=== PATIENT | male | born 1960 | race African-American/Black ===

== ENCOUNTER 2016-08-19 15:29 | Emergency (ER) | payer OTHER ==
[2016-08-19 15:34] VITALS: BP 181/91; BMI 36.1
--- NOTE | 2016-08-19 15:53 | DR.EXTPAIN ---
HPI - Time seen Time seen: 15:50 - PCP Primary Care Physician: EB - Complaint/Symptoms Chief Complaint Doctor Comments: History as stated. Chief Complaint:: PT. C/O LEFT HEEL PAIN THAT STARTED 2 WEEKS AGO. PT. STATES HE HAS GOUT IN THAT SAME FOOT IN THE PAST. DENIES INJURY. - Source History Provided: Patient - Mode of arrival Mode of Arrival: Ambulatory - Timing Onset of Chief Complaint: 08/05/16 PMH - PMH Past Medical History: Yes Past Medical History: Diabetes, Dyslipidemia, Gout, Hypertension, Renal Disease Past Surgical History: Yes Surgical History: Other Past Surgical History Comment: DIALYSIS SHUNT TO RIGHT FOREARM - Family History History of Family Medical Conditions: Yes Family Medical History: Diabetes Mellitus, Hypertension - Social History Does patient currently use any type of tobacco product: Yes Have you used tobacco products in the last 12 months: Yes Type of Tobacco Use: Cigarettes How many years tobacco product used: 40 Does any household member use tobacco: No Alcohol Use: Occasionally Do you use any recreational Drugs:: No Lives With: Alone Lives Where: Home - infectious screening In the last 2 months have you had wt loss of >10#?: NO Have you had fever, night sweats or hemotysis?: No Have you traveled outside the country in the last 6 months?: No Isolation: Standard ROS - Review of Systems Constitutional: No Symptoms Reported Eyes: No Symptoms Reported ENTM: No Symptoms Reported Respiratoy: No Symptoms Reported Cardiovascular: No Symptoms Reported Gastrointestinal/Abdominal: No Symptoms Reported Genitourinary: No Symptoms Reported Neurological: No Symptoms Reported Musculoskeletal: Foot (Pain plantar surface of left foot) Integumentary: No Symptoms Reported Hematologic/Lymphatic: No Symptoms Reported Endocrine: No Symptoms Reported Psychiatric: No Symptoms Reported All Other Systems: Reviewed and Negative PE - Vital Signs Vitals: Temperature 99.4 F Pulse Rate 78 Respiratory Rate 16 Blood Pressure 181/91 O2 Sat by Pulse Oximetry 96 - General Limitations: No Limitations General Appearance: Alert, In No Apparent Distress - Head Head Exam: Normal Inspection, Atraumatic - Eyes Eye exam: Normal Appearance, PERRL, EOMI - ENT ENT Exam: Normal Exam - Neck Neck Exam: Normal Inspection, Full ROM - Chest Chest Inspection: Normal Inspection - Respiratory Respiratory Exam: Normal Lung Sounds Bilat Respiratory Exam: Bilateral Clear to Auscultation - Cardiovascular Cardiovascular Exam: Regular Rate, Normal Rhythm - Abdominal Exam Abdominal Exam: Normal Inspection, Normal Bowel Sounds Abdominal Tenderness: negative: RUQ, RLQ, LUQ, LLQ, Epigastrium, Suprapubic, Diffuse, Mild, Moderate, Severe, Other - Extremities Extremities Exam: Normal Inspection, Other (plantar surface of left tender) - Upper Extremities Shoulder Exam: Normal Inspection Arm Exam: Normal Inspection Elbow Exam: Normal Inspection Forearm Exam: Normal Inspection Hand Exam: Normal Inspection Neuromotor Exam: Normal Exam Neurosensory Exam: Normal Exam Hand Tendon Exam: Flexor Digitorium Profundus (Location) Upper Ext. Vascular Exam: Capillary Refill - Lower Extremities Hip/Pelvis Exam: Normal Inspection Upper Leg Exam: Normal Inspection Knee Exam: Normal Inspection Lower Leg Exam: Normal Inspection. negative: Tenderness Ankle Exam: Normal Inspection Foot/Toe Exam: Tenderness (plantar surface of left foot) Neurovascular/Tendon Exam: Normal Capillary Refill Gait Exam: Not Tested/Not Observed - Back Back Exam: Normal Inspection - Skin Skin Exam: Warm, Dry, Intact Type of Lesion: Rash ROR - XRAY XRAY Interpreted by: Radiologist (There is no cortical lucency or malalignment. There is enthesopathy of the calcaneus which is somewhat indistinct at the plantar fascia attachment. Active plantar fascitis possible. Midfoot degenerative change noted. Vascular calcifications seen. 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 Impression: Plantar fascitis possible. If needed. nonmergent MR can help characterize presence of active inflammation. Ohterwise, degenerative changes and other findings as above.) - Diagnosis Discharge Problem: Plantar fasciitis of left foot - Discharge Plan Condition: Stable - Follow ups/Referrals Follow ups/Referrals: Jesenia Styles [Primary Care Provider] - 3 days - Instructions
[2016-08-19] MEDS ORDERED: TORADOL 60 MG VIAL IM ONE (15:54)
[2016-08-19] MEDS ORDERED: TORADOL 60 MG VIAL ONE (16:21)
--- NOTE | 2016-08-19 16:27 | RAD ---
Left foot three views Indication: Heel pain when walking. No trauma. Findings: There is no cortical lucency or malalignment. There is enthesopathy of the calcaneus which is somewhat indistinct at the plantar fascia attachment. Active plantar fasciitis possible. Midfoot degenerative change noted. Vascular calcifications seen. Great toe MTP joint DJD and plane deformit y noted. Impression: Plantar fasciitis possible. If needed , nonemergent MR can help characterize presence of active inflammation. Otherwise, degenerative changes and other findings as above. Reported By:
== END 2016-08-19 17:09 | disposition home or self-care (01) ==
LOC: ER 15:49
DX: M72.2 Plantar fascial fibromatosis (principal)
CPT/HCPCS: 73630; 96372; 99282; J1885

== ENCOUNTER 2017-01-27 10:47 | Emergency (ER) | payer OTHER, MEDICAID ==
[2017-01-27 11:04] VITALS: BP 184/90; BMI 33.2
[2017-01-27 13:13] LABS: BASOPHILS % (AUTO) 0.4 % (0.2-1.0); EOSINOPHILS # (AUTO) 0.2 x10^3/uL (0.0-0.2); EOSINOPHILS % (AUTO) 2.8 % (0.9-2.9); HEMATOCRIT 27.4 % (42.0-54.0); HEMOGLOBIN 9.3 g/dL (13.5-18.0); LYMPHOCYTES # (AUTO) 1.7 X10^3/uL (1.3-2.9); MEAN CORPUSCULAR HEMOGLOBIN 32.4 pg (27.0-34.0); MEAN CORPUSCULAR HGB CONC 33.9 g/dL (33.0-35.0); MEAN CORPUSCULAR VOLUME 95.7 fL (80.0-100.0); MEAN PLATELET VOLUME 8.7 fL (7.4-11.0); MONOCYTES # (AUTO) 0.5 x10^3/uL (0.3-0.8); MONOCYTES % (AUTO) 7.7 % (0.0-13.0); NEUTROPHILS # (AUTO) 3.6 x10^3/uL (2.2-4.8); NEUTROPHILS % (AUTO) 61.1 % (42.0-75.0); PLATELET COUNT 215 X10^3/uL (150.0-450.0); RED BLOOD COUNT 2.87 X10^6/uL (4.7-6.0); RED CELL DISTRIBUTION WIDTH 13.7 % (11.6-16.5); WHITE BLOOD COUNT 5.9 X10^3/uL (3.6-10.0)
[2017-01-27 13:19] LABS: ALBUMIN 3.3 g/dL (3.4-5.0); CALCIUM 8.3 mg/dL (8.5-10.1); CARBON DIOXIDE 24.7 mmol/L (21-32); COR CA(FOR HYPOALB) 8.9 mg/dL (8.5-10.1); CREATININE 9.06 mg/dL (0.70-1.30); TOTAL PROTEIN 8.8 g/dL (6.4-8.2)
[2017-01-27] MEDS ORDERED: HumuLIN R SUBCUT ONE (14:07)
--- NOTE | 2017-01-27 14:07 | DR.GENAD ---
HPI - PCP Primary Care Physician: none - HPI Comment HPI Comment: DENIES POLYURIA AND POLYDYPSIA. - Complaint/Symptoms Chief Complaint Doctors Comments: ELEVATED BLOOD GLUCOSE. WANT TO KNOW HOW TO USE HIS GLUCOSE MACHINE. Chief Complaint:: "pt is not sure if his blood sugar is high or not" Self Treatment fo Chief Complaint: sugar 515 - Nurses notes reviewed Nurses Notes Review: Yes - Source History Provided: Patient - Mode of Arrival Mode of Arrival: Ambulatory - Timing Onset of Chief Complaint: 01/27/17 - Duration Duration: Constant Duration: Days - Severity Severity: Moderate PMH - PMH Past Medical History: Yes Past Medical History: Diabetes, Dyslipidemia, Gout, Hypertension, Renal Disease Past Surgical History: Yes Surgical History: Other - Family History History of Family Medical Conditions: Yes Family Medical History: Diabetes Mellitus, Hypertension - Social History Does patient currently use any type of tobacco product: Yes Have you used tobacco products in the last 12 months: Yes Type of Tobacco Use: Cigarettes How many years tobacco product used: 40 Does any household member use tobacco: No Do you use any recreational Drugs:: No Lives With: Family Lives Where: Home - infectious screening In the last 2 months have you had wt loss of >10#?: NO Have you had fever, night sweats or hemotysis?: No Have you traveled outside the country in the last 6 months?: No Isolation: Standard ROS - Review of Systems Constitutional: No Symptoms Reported. negative: Chills, Fever, Weakness, Fatigue Eyes: No Symptoms Reported. negative: Eye Pain, Discharge ENTM: No Symptoms Reported. negative: Ear Pain, Nose Discharge, Nose Congestion , Throat Pain Respiratoy: Short of Breath. negative: Productive Cough, Non-Productive Cough, Wheezing, Hemoptysis Cardiovascular: Edema. negative: Chest Pain Gastrointestinal/Abdominal: No Symptoms Reported Genitourinary: No Symptoms Reported Neurological: Weakness. negative: Headache, Dizziness Musculoskeletal: Muscle Pain Integumentary: Change in Color. negative: Bruises, Juandice Hematologic/Lymphatic: Easy Bleeding, Easy Bruising Endocrine: negative: Flushing, Increased Thirst, Increased Urine All Other Systems: Reviewed and Negative PE - Vital Signs Vitals: Temperature 98 F Pulse Rate 84 Respiratory Rate 18 Blood Pressure 184/90 O2 Sat by Pulse Oximetry 100 - General Limitations: No Limitations General Appearance: Alert - Head Head Exam: Normal Inspection - Eyes Eye exam: Normal Appearance - ENT ENT Exam: Normal External Ear Exam External Ear Exam: Normal External Inspection TM/Canal Exam: Bilateral Normal Nose Exam: Normal Nose Exam Mouth Exam: Normal Inspection Throat Exam: Normal Inspection - Neck Neck Exam: Trachea Midline - Chest Chest Inspection: Symmetric Chest Wall Rise - Respiratory Respiratory Exam: Normal Lung Sounds Bilat Respiratory Exam: Bilateral Clear to Auscultation - Cardiovascular Cardiovascular Exam: Regular Rate, Normal Rhythm, Normal Heart Sounds - Abdominal Exam Abdominal Exam: Normal Bowel Sounds, Soft. negative: Tenderness - Extremities Extremities Exam: Normal Inspection - Back Back Exam: Normal Inspection - Neurologic Neurological Exam: Alert, Oriented X3 - Skin Skin Exam: Erythema MDM - Differential Diagnosis Differential Diagnosis: HYPERGLYCEMIA, EDUCATION HOW TO USE ACU CHECK MACHINE FOR GLUCOSE MONITOR. Course - Treatment Treatment: SEE ORDERS. GLUCOSE DECREASING. PATIENT ADMINISTER SLIDING SCALE INSULIN WHILE IN ED. - Education/Counseling Education/Counseling: Patient, Family, Education Educated On: Treatment, Diagnosis, Needs for Follow Up ROR - Labs Reviewed Laboratory Results Reviewed?: Yes Result Diagrams: 01/27/17 13:00 01/27/17 13:00 Laboratory: WBC 5.9 X10^3/uL (3.6-10.0) 01/27/17 13:00 RBC 2.87 X10^6/uL (4.7-6.0) L 01/27/17 13:00 Hgb 9.3 g/dL (13.5-18.0) L 01/27/17 13:00 Hct 27.4 % (42.0-54.0) L 01/27/17 13:00 MCV 95.7 fL (80.0-100.0) 01/27/17 13:00 MCH 32.4 pg (27.0-34.0) 01/27/17 13:00 MCHC 33.9 g/dL (33.0-35.0) 01/27/17 13:00 RDW 13.7 % (11.6-16.5) 01/27/17 13:00 Plt Count 215 X10^3/uL (150.0-450.0) 01/27/17 13:00 MPV 8.7 fL (7.4-11.0) 01/27/17 13:00 Neut % 61.1 % (42.0-75.0) 01/27/17 13:00 Lymph % 28.0 % (21.0-51.0) 01/27/17 13:00 [place] % 7.7 % (0.0-13.0) 01/27/17 13:00 Eos % 2.8 % (0.9-2.9) 01/27/17 13:00 Baso % 0.4 % (0.2-1.0) 01/27/17 13:00 Neut # 3.6 x10^3/uL (2.2-4.8) 01/27/17 13:00 Lymph # 1.7 X10^3/uL (1.3-2.9) 01/27/17 13:00 [place] # 0.5 x10^3/uL (0.3-0.8) 01/27/17 13:00 Eos # 0.2 x10^3/uL (0.0-0.2) 01/27/17 13:00 Baso # 0.0 X10^3/uL (0.0-0.1) 01/27/17 13:00 Absolute Nucleated RBC 0.1 /100WBC 01/27/17 13:00 Sodium 136 mmol/L (136-145) 01/27/17 13:00 Corrected Sodium 144 mmol/L (136-145) 01/27/17 13:00 Potassium 4.1 mmol/L (3.5-5.1) 01/27/17 13:00 Chloride 100 mmol/L (98-107) 01/27/17 13:00 Carbon Dioxide 24.7 mmol/L (21-32) 01/27/17 13:00 BUN 40 mg/dL (7-18) H 01/27/17 13:00 Creatinine 9.06 mg/dL (0.70-1.30) H 01/27/17 13:00 Est GFR (MDRD) Af Amer 8 (>60) L 01/27/17 13:00 Est GFR (MDRD) Non-Af 6 (>60) L 01/27/17 13:00 Glucose 431 mg/dL (65-99) H 01/27/17 13:00 POC Glucose (mg/dL) 352 mg/dL (65-99) H 01/27/17 14:26 Calcium 8.3 mg/dL (8.5-10.1) L 01/27/17 13:00 Corrected Calcium 8.9 mg/dL (8.5-10.1) 01/27/17 13:00 Total Bilirubin 0.20 mg/dL (0.2-1.0) 01/27/17 13:00 AST 15 Units/L (15-37) 01/27/17 13:00 ALT 15 Units/L (12-78) 01/27/17 13:00 Alkaline Phosphatase 121 Units/L (46-116) H 01/27/17 13:00 Total Protein 8.8 g/dL (6.4-8.2) H 01/27/17 13:00 Albumin 3.3 g/dL (3.4-5.0) L 01/27/17 13:00 Globulin 5.5 g/dL (2.5-4.5) H 01/27/17 13:00 Albumin/Globulin Ratio 0.6 Ratio (1.1-2.1) L 01/27/17 13:00 Acetone, Semi-Quant Negative (NEGATIVE) 01/27/17 13:00 - Diagnosis Discharge Problem: Hyperglycemia - Discharge Plan Disposition: 01 HOME, SELF-CARE Condition: Stable - Follow ups/Referrals Follow ups/Referrals: NFD,None [Primary Care Provider] - 2 days - Instructions Instructions: Hyperglycemia, [id number] Additional Instructions: RETURN TO ED IF WORSE.
[2017-01-27] MEDS ORDERED: HumuLIN R ONE (14:19)
[2017-01-27] MEDS ORDERED: SNACK - Diabetic Appropriate PO SCH (20:00)
== END 2017-01-27 14:36 | disposition home or self-care (01) ==
LOC: ER 11:09
DX: R73.9 Hyperglycemia, unspecified (principal)
CPT/HCPCS: 36415; 80053; 82009; 85025; 99282; J1815

== ENCOUNTER → 2017-04-07 | Outpatient (CLI) | payer OTHER, MEDICAID ==
--- NOTE | 2017-04-08 14:22 | MRI ---
MRI SPINE CERVICAL WITHOUT CONTRAST CLINICAL HISTORY: 57-year-old male with chronic neck pain and numbness with tingling in the bilateral upper extremities. COMPARISON: None. Technique: Multiplanar, multisequence MRI images of the cervical spine were obtained without the adm inistration of intravenous contrast. FINDINGS: Straightening with mild reversal at C4-C5 of the normal cervical lordosis as imaged. Alignm ent is maintained. The craniocervical junction is normal. Vertebral body heights are preserved with t ype 2 endplate changes anteriorly C5-C6. There is loss of disc space C4-C5. Remaining intervertebral disc heights and signal are preserved. Marrow signal is otherwise unremarkable. Cord signal is lory l. The visualized posterior fossa structures are normal. C2-C3: Segmental ossification of the posterior longitudinal ligament with central disc osteophyte maria del rosario rows canal to 10.4 mm without cord impingement or contour deformity. No cord signal change. No neural foraminal stenosis. C3-C4: Segmental ossification posterior longitudinal ligament superimposed upon the central disc oste ophyte narrows canal 9.6 mm. There is subtle flattening of the ventral cord centrally without cord si gnal change. No significant neural foraminal stenosis. C4-C5: Segmental ossification of the posterior longitudinal ligament with central disc osteophyte maria del rosario rows canal to 8.0 mm with depression of the ventral cord without cord signal change. Uncovertebral kemar int hypertrophy with spurring with facet joint hypertrophy produces moderate left and mild right neur al foraminal stenosis. C5-C6: Large central and left central disc osteophyte complex produces is effacement of the ventral s ubarachnoid spaces with significant contour deformity of the ventral cord without cord signal change. Significant uncovertebral joint hypertrophy with spurring combines with mild facet hypertrophy produ ce moderate bilateral neural foraminal stenosis. C6-C7: Segmental ossification of the posterior longitudinal ligament with central disc osteophyte com plex narrows central canal to 6.8 mm with flattening of the ventral cord without cord signal change. Uncovertebral joint hypertrophy with spurring produces mild right neural foraminal stenosis. C7-T1: No central canal or neural foraminal stenosis. Paraspinous soft tissues are unremarkable. IMPRESSION: 1. Multilevel disc degeneration and spondyloarthropathy with flattening of the ventral cord without c ord signal change as described, most severe at C4-C5 and C6-C7. 2. See level by level descriptions above. Reported By:
== END ==
LOC: RAD 09:32
PROVIDERS: ATTEND Obstetrics & Gynecology Obstetrics
DX: M54.12 Radiculopathy, cervical region (principal)
CPT/HCPCS: 72141

== ENCOUNTER → 2017-04-24 | Outpatient (CLI) | payer OTHER, MEDICAID ==
[2017-04-28 21:38] LABS: HEPATITIS A ANTIBODY IGM Negative (Negative)
[2017-04-29 07:26] LABS: HEPATITIS B CORE IGM Negative (Negative); HEPATITIS B SURFACE ANTIGEN Negative (Negative)
== END ==
LOC: LAB 15:40
PROVIDERS: ATTEND Obstetrics & Gynecology Obstetrics
DX: K75.9 Inflammatory liver disease, unspecified (principal)
CPT/HCPCS: 36415; 80074; 87340

== ENCOUNTER → 2017-05-01 | Outpatient (CLI) | payer OTHER, MEDICAID | LOC: LAB 09:29 | PROVIDERS: ATTEND Obstetrics & Gynecology Obstetrics | DX: F52.21 Male erectile disorder (principal) | CPT/HCPCS: 36415; 82670; 84153; 84403 ==

== ENCOUNTER 2017-07-29 11:54 | Emergency (ER) | payer OTHER, MEDICAID ==
[2017-07-29 11:57] VITALS: BMI 35.9
[2017-07-29] MEDS ORDERED: ASPIRIN 81 MG CHEWTAB ONE (11:59)
[2017-07-29] MEDS ORDERED: ASPIRIN 81 MG CHEWTAB PO ONE (12:00)
[2017-07-29] MEDS: NITROSTAT SL PRN ×3 (12:05→12:42)
[2017-07-29] MEDS ORDERED: NITROSTAT SL ONE ×2 (12:05→12:13)
[2017-07-29] MEDS ORDERED: NS 1000 ML 1,000 ML ONE (12:14)
[2017-07-29] MEDS ORDERED: NS 1000 ML 1,000 ML IV ONE (12:17)
[2017-07-29 12:29] LABS: BASOPHILS % (AUTO) 0.6 % (0.2-1.0); EOSINOPHILS # (AUTO) 0.2 x10^3/uL (0.0-0.2); EOSINOPHILS % (AUTO) 3.5 % (0.9-2.9); HEMATOCRIT 30.1 % (42.0-54.0); HEMOGLOBIN 9.8 g/dL (13.5-18.0); LYMPHOCYTES # (AUTO) 1.5 X10^3/uL (1.3-2.9); LYMPHOCYTES % (AUTO) 27.9 % (21.0-51.0); MEAN CORPUSCULAR HEMOGLOBIN 29.5 pg (27.0-34.0); MEAN CORPUSCULAR HGB CONC 32.5 g/dL (33.0-35.0); MEAN CORPUSCULAR VOLUME 90.7 fL (80.0-100.0); MEAN PLATELET VOLUME 7.8 fL (7.4-11.0); MONOCYTES # (AUTO) 0.5 x10^3/uL (0.3-0.8); MONOCYTES % (AUTO) 10.2 % (0.0-13.0); NEUTROPHILS % (AUTO) 57.8 % (42.0-75.0); PLATELET COUNT 252 X10^3/uL (150.0-450.0); RED BLOOD COUNT 3.32 X10^6/uL (4.7-6.0); RED CELL DISTRIBUTION WIDTH 16.6 % (11.6-16.5); WHITE BLOOD COUNT 5.3 X10^3/uL (3.6-10.0)
[2017-07-29 12:41] LABS: BLOOD UREA NITROGEN 57 mg/dL (7-18); CALCIUM 8.6 mg/dL (8.5-10.1); CARBON DIOXIDE 25.3 mmol/L (21-32); CHLORIDE 103 mmol/L (98-107); CREATININE 10.25 mg/dL (0.70-1.30); SODIUM 141 mmol/L (136-145); TROPONIN I 0.03 ng/mL (0-1.5); eGFR BLACK RACES 7 (>60); eGFR NON BLACK RACES 6 (>60)
[2017-07-29 12:46] LABS: ALANINE AMINOTRANSFERASE 14 Units/L (12-78); ALBUMIN 3.8 g/dL (3.4-5.0); ALKALINE PHOSPHATASE 85 Units/L (46-116); ASPARTATE AMINO TRANSFERASE 17 Units/L (15-37); CKMB % 1.1 % (<4); CREATINE KINASE 151 Units/L (39-308); CREATINE KINASE MB 1.7 ng/mL (0-4.0); TOTAL PROTEIN 9.5 g/dL (6.4-8.2)
--- NOTE | 2017-07-29 12:47 | RAD ---
Exam: Portable chest History: 57-year-old male with chest pain and shortness of breath Comparison: None Findings: Mild cardiomegaly is present. In addition suggestion of mild vascular congestion is noted a s well. Otherwise lungs are clear. No significant effusion on either side. IMPRESSION: Cardiomegaly with mild vascular congestion suspected Reported By:
--- NOTE | 2017-07-29 13:33 | DR.CP ---
HPI - Time Seen Time seen: 12:15 - PCP Primary Care Physician: CUETO - Complaint Chief Complaint Doctor Comments: Patient presented to the ED with chest pain onset 4-6 hours prior to being seen. States that the pain is lower chest radiating to the left neck and left arm. Denies diaphoresis. Family history of heart disease. Patient is on dialysis with history o DM. Chief Complaint:: PT. C/O CHEST PAIN THAT RADIATES TO NECK AND DOWN LEFT ARM. PAIN BEGINS IN THE EPIGASTRIC AREA AND EXTENDS UP TOWARDS CHEST. PT. HAS ALSO EXPERIENCED SOME SHORTNESS OF BREATH. DENIES CARDIAC HISTORY. - Source History Provided: Patient - Mode of Arrival Mode of Arrival: Ambulatory - Timing Onset of Chief Complaint: 07/29/17 - Location Chest Pain Radiation Location: Left Arm, Left Shoulder, Neck - Associated Signs and Symptoms Associated Signs and Symptoms: Shortness of Breath PMH - PMH Past Medical History: Yes Past Medical History: Diabetes, Dyslipidemia, Gout, Hypertension, Renal Disease Past Surgical History: Yes Surgical History: Other Past Surgical History Comment: DIALYSIS SHUNT TO RIGHT ARM - Family History History of Family Medical Conditions: Yes Family Medical History: Diabetes Mellitus, [place], Coronary Artery Disease, Hypertension - Social History Does patient currently use any type of tobacco product: Yes Have you used tobacco products in the last 12 months: Yes Type of Tobacco Use: Cigarettes Does any household member use tobacco: No Alcohol Use: None Do you use any recreational Drugs:: No Lives With: Spouse Lives Where: Home - infectious screening In the last 2 months have you had wt loss of >10#?: NO Have you had fever, night sweats or hemotysis?: No Have you traveled outside the country in the last 6 months?: No Isolation: Standard ROS - Review of Systems Constitutional: negative: Diaphoresis Eyes: No Symptoms Reported ENTM: No Symptoms Reported Respiratoy: No Symptoms Reported Cardiovascular: Chest Pain (lower chest radiating to left neck down left arm) Genitourinary: No Symptoms Reported Neurological: No Symptoms Reported Musculoskeletal: No Symptoms Reported Integumentary: No Symptoms Reported Hematologic/Lymphatic: No Symptoms Reported Endocrine: No Symptoms Reported Psychiatric: No Symptoms Reported All Other Systems: Reviewed and Negative PE - Vitals Vitals: Temperature 98.2 F Pulse Rate [Apical] 79 Pulse Rate 83 Respiratory Rate 14 Blood Pressure [Left Arm] 156/80 Blood Pressure 189/84 O2 Sat by Pulse Oximetry 100 - General Limitations: No Limitations General Appearance: Alert, In No Apparent Distress - Head Head Exam: Normal Inspection, Atraumatic - Eyes Eye exam: Normal Appearance, PERRL, EOMI - ENT ENT Exam: Normal Exam - Chest Chest Inspection: Normal Inspection, Symmetric Chest Wall Rise - Respiratory Respiratory Exam: Normal Lung Sounds Bilat Respiratory Exam: Bilateral Clear to Auscultation - Cardiovascular Cardiovascular Exam: Regular Rate, Normal Rhythm Pulse: Normal, Radial, Femoral Edema: Normal - Abdominal Exam Abdominal Exam: Normal Inspection Abdominal Tenderness: negative: RUQ, RLQ, LUQ, LLQ, Epigastrium, Suprapubic, Diffuse, Mild, Moderate, Severe, Other - Extremities Extremities Exam: Normal Inspection, Full ROM - Back Back Exam: Normal Inspection, Full ROM - Neurologic Neurological Exam: Alert, Oriented X3, CN II-XII Intact - Psychiatric Psychiatric Exam: Normal Affect, Normal Mood - Skin Skin Exam: Warm, Dry, Intact Course - Treatment Treatment: ASA, NT - Reevaluation 1st: Improved - Consultation Called: 13:15 (Dr Cueto agreed to admit for chest pain protocol) ROR - Labs Reviewed Result Diagrams: 07/29/17 12:15 07/29/17 12:15 Laboratory: WBC 5.3 X10^3/uL (3.6-10.0) 07/29/17 12:15 RBC 3.32 X10^6/uL (4.7-6.0) L 07/29/17 12:15 Hgb 9.8 g/dL (13.5-18.0) L 07/29/17 12:15 Hct 30.1 % (42.0-54.0) L 07/29/17 12:15 MCV 90.7 fL (80.0-100.0) 07/29/17 12:15 MCH 29.5 pg (27.0-34.0) 07/29/17 12:15 MCHC 32.5 g/dL (33.0-35.0) L 07/29/17 12:15 RDW 16.6 % (11.6-16.5) H 07/29/17 12:15 Plt Count 252 X10^3/uL (150.0-450.0) 07/29/17 12:15 MPV 7.8 fL (7.4-11.0) 07/29/17 12:15 Neut % (Auto) 57.8 % (42.0-75.0) 07/29/17 12:15 Lymph % (Auto) 27.9 % (21.0-51.0) 07/29/17 12:15 [place] % (Auto) 10.2 % (0.0-13.0) 07/29/17 12:15 Eos % (Auto) 3.5 % (0.9-2.9) H 07/29/17 12:15 Baso % (Auto) 0.6 % (0.2-1.0) 07/29/17 12:15 Neut # (Auto) 3.0 x10^3/uL (2.2-4.8) 07/29/17 12:15 Lymph # (Auto) 1.5 X10^3/uL (1.3-2.9) 07/29/17 12:15 [place] # (Auto) 0.5 x10^3/uL (0.3-0.8) 07/29/17 12:15 Eos # (Auto) 0.2 x10^3/uL (0.0-0.2) 07/29/17 12:15 Baso # (Auto) 0.0 X10^3/uL (0.0-0.1) 07/29/17 12:15 Absolute Nucleated RBC 0.0 /100WBC 07/29/17 12:15 INR Target Range - 07/29/17 12:15 INR 1.10 (0.8-1.3) 07/29/17 12:15 APTT 39.8 SECONDS (22.9-36.5) H 07/29/17 12:15 PTT Comment - 07/29/17 12:15 Sodium 141 mmol/L (136-145) 07/29/17 12:15 Corrected Sodium TNP 07/29/17 12:15 Potassium 4.6 mmol/L (3.5-5.1) 07/29/17 12:15 Chloride 103 mmol/L (98-107) 07/29/17 12:15 Carbon Dioxide 25.3 mmol/L (21-32) 07/29/17 12:15 BUN 57 mg/dL (7-18) H 07/29/17 12:15 Creatinine 10.25 mg/dL (0.70-1.30) H 07/29/17 12:15 Est GFR (MDRD) Af Amer 7 (>60) L 07/29/17 12:15 Est GFR (MDRD) Non-Af 6 (>60) L 07/29/17 12:15 Glucose 78 mg/dL (65-99) 07/29/17 12:15 Calcium 8.6 mg/dL (8.5-10.1) 07/29/17 12:15 Corrected Calcium TNP 07/29/17 12:15 Total Bilirubin 0.40 mg/dL (0.2-1.0) 07/29/17 12:15 AST 17 Units/L (15-37) 07/29/17 12:15 ALT 14 Units/L (12-78) 07/29/17 12:15 Alkaline Phosphatase 85 Units/L (46-116) 07/29/17 12:15 Creatine Kinase 151 Units/L (39-308) 07/29/17 12:15 CK-MB (CK-2) 1.7 ng/mL (0-4.0) 07/29/17 12:15 CK/CKMB % Calc 1.1 % (<4) 07/29/17 12:15 Troponin I 0.03 ng/mL (0-1.5) 07/29/17 12:15 Total Protein 9.5 g/dL (6.4-8.2) H 07/29/17 12:15 Albumin 3.8 g/dL (3.4-5.0) 07/29/17 12:15 Globulin 5.7 g/dL (2.5-4.5) H 07/29/17 12:15 Albumin/Globulin Ratio 0.7 Ratio (1.1-2.1) L 07/29/17 12:15 - XRAY XRAY Interpreted by: Radiologist (Chest:Mild cardiomegaly is present. In addition suggestion of mild vascular congestion is noted as well. Impression: Cardiomegaly with mild vascular congestion suspected.) - Diagnosis Discharge Problem: Chest pain Qualifiers: Chest pain type: unspecified Qualified Code(s): R07.9 - Chest pain, unspecified Renal failure Qualifiers: Renal failure chronicity: chronic Chronic kidney disease stage: unspecified stage Qualified Code(s): N18.9 - Chronic kidney disease, unspecified - Discharge Plan Condition: Stable - Follow ups/Referrals Follow ups/Referrals: SHELLI CUETO [Primary Care Provider] - 3 days - Instructions
[2017-07-29] MEDS ORDERED: ZOFRAN INJ 4 MG VIAL IVP PRN (13:43)
[2017-07-29 16:27] LABS: BILIRUBIN,URINE NEGATIVE (NEGATIVE); BLOOD/HEMOGLOBIN,URINE 2+ (NEGATIVE); GLUCOSE, URINE 1+ (NEGATIVE); KETONES,URINE NEGATIVE (NEGATIVE); LEUKOCYTE ESTERASE ,URINE 1+ (NEGATIVE); NITRITES,URINE NEGATIVE (NEGATIVE); PROTEIN,URINE 4+ (NEGATIVE); UROBILINOGEN,URINE NORMAL (NORMAL)
[2017-07-29 16:36] LABS: APPEARANCE,URINE SLIGHTLY HAZY (CLEAR); BACTERIA,URINE 1+ /HPF (NEGATIVE); COLOR,URINE YELLOW (YELLOW); SQUAMOUS EPITHELIAL CELL,UR FEW /HPF (NEGATIVE)
[2017-07-29 18:33] LABS: CKMB % 1.1 % (<4); CREATINE KINASE MB 1.5 ng/mL (0-4.0); TROPONIN I 0.03 ng/mL (0-1.5)
[2017-07-30 01:02] LABS: CKMB % 1.1 % (<4); CREATINE KINASE MB 1.2 ng/mL (0-4.0); TROPONIN I 0.03 ng/mL (0-1.5)
[2017-07-30 06:12] LABS: BASOPHILS % (AUTO) 0.5 % (0.2-1.0); EOSINOPHILS # (AUTO) 0.2 x10^3/uL (0.0-0.2); EOSINOPHILS % (AUTO) 3.5 % (0.9-2.9); HEMOGLOBIN 8.6 g/dL (13.5-18.0); LYMPHOCYTES # (AUTO) 1.5 X10^3/uL (1.3-2.9); LYMPHOCYTES % (AUTO) 30.2 % (21.0-51.0); MEAN CORPUSCULAR HEMOGLOBIN 29.9 pg (27.0-34.0); MEAN CORPUSCULAR HGB CONC 33.2 g/dL (33.0-35.0); MEAN CORPUSCULAR VOLUME 89.9 fL (80.0-100.0); MEAN PLATELET VOLUME 7.9 fL (7.4-11.0); MONOCYTES # (AUTO) 0.5 x10^3/uL (0.3-0.8); MONOCYTES % (AUTO) 9.4 % (0.0-13.0); NEUTROPHILS # (AUTO) 2.8 x10^3/uL (2.2-4.8); NEUTROPHILS % (AUTO) 56.4 % (42.0-75.0); PLATELET COUNT 214 X10^3/uL (150.0-450.0); RED BLOOD COUNT 2.89 X10^6/uL (4.7-6.0); RED CELL DISTRIBUTION WIDTH 16.1 % (11.6-16.5)
[2017-07-30 06:30] LABS: ALANINE AMINOTRANSFERASE 12 Units/L (12-78); ALBUMIN 3.1 g/dL (3.4-5.0); ALKALINE PHOSPHATASE 82 Units/L (46-116); ASPARTATE AMINO TRANSFERASE 13 Units/L (15-37); BLOOD UREA NITROGEN 64 mg/dL (7-18); CALCIUM 7.9 mg/dL (8.5-10.1); CARBON DIOXIDE 23.2 mmol/L (21-32); CHLORIDE 105 mmol/L (98-107); CHOL/HDL RATIO 2.6 (0.0-5.0); CHOLESTEROL 102 mg/dL (0-200); COR CA(FOR HYPOALB) 8.6 mg/dL (8.5-10.1); CREATININE 10.75 mg/dL (0.70-1.30); HDL CHOLESTEROL 39 mg/dL (40-60); SODIUM 140 mmol/L (136-145); TRIGLYCERIDES 64 mg/dL (0-150); eGFR BLACK RACES 6 (>60); eGFR NON BLACK RACES 5 (>60)
[2017-07-30 12:52] VITALS: BP 170/85
== END 2017-07-30 13:35 | disposition home or self-care (01) ==
LOC: ER 12:01 → MED/SURG 14:04
PROVIDERS: ADMIT Obstetrics & Gynecology Obstetrics; ATTEND Obstetrics & Gynecology Obstetrics
DX: R07.89 Other chest pain (principal); M54.2 Cervicalgia; M79.602 Pain in left arm; R06.02 Shortness of breath; N18.9 Chronic kidney disease, unspecified; R79.1 Abnormal coagulation profile; E78.2 Mixed hyperlipidemia; R10.13 Epigastric pain; R94.4 Abnormal results of kidney function studies; I12.9 Hypertensive chronic kidney disease with stage 1 through stage 4 chronic kidney disease, or unspecified chronic kidney disease; I51.7 Cardiomegaly; Z79.899 Other long term (current) drug therapy
CPT/HCPCS: 36415; 71045; 80053; 80061; 81001; 82550; 82553; 82607; 82728; 82746; 83540; 84466; 84484; 85025; 85610; 85730; 87086; 93005; 93010; 94760; 96365; 99284; A4216; A4222; G0378

== ENCOUNTER 2017-09-14 10:52 | Emergency (ER) | payer MEDICAID, OTHER ==
[2017-09-14 10:58] VITALS: BP 143/67; BMI 34.5
--- NOTE | 2017-09-14 11:36 | DR.EXTPAIN ---
HPI - Time seen Time seen: 11:30 - PCP Primary Care Physician: ROM BRUMFIELD - HPI Comment HPI Comment: NO TRAUMA. PAIN ON AND OFF IN THE PAST. THIS EPISODE STARTED THURSDAY. NO FEVER. - Complaint/Symptoms Chief Complaint Doctor Comments: INCREASING LT SHOULDER AND HIP PAIN TIMES 3 DAYS. Chief Complaint:: PT C/O LEFT HIP AND LEFT SHOULDER PAIN PT DENIES ANY INJURY AND HE C/O NOT BEING ABLE TO LIFT HIS LEFT SHOULDER,,, BR - Nurses notes reviewed Nurses Notes Review: Yes - Source History Provided: Patient - Mode of arrival Mode of Arrival: Ambulatory - Timing Onset of Chief Complaint: 09/09/17 - Context History of: Arthritis - Associated signs and symptoms Associated Signs and Symptoms: Pain PMH - PMH Past Medical History: Yes Past Medical History: Diabetes, Dyslipidemia, Gout, Hypertension, Renal Disease Past Medical History Comment: RENAL FAILURE, DIALYSIS Past Surgical History: Yes Surgical History: Ortho Surgery - Family History History of Family Medical Conditions: Yes Family Medical History: Cancer, Hypertension - Social History Does patient currently use any type of tobacco product: No Have you used tobacco products in the last 12 months: No Type of Tobacco Use: None Does any household member use tobacco: No Alcohol Use: None Do you use any recreational Drugs:: No Lives With: Family Lives Where: Home - infectious screening In the last 2 months have you had wt loss of >10#?: NO Have you had fever, night sweats or hemotysis?: No Have you traveled outside the country in the last 6 months?: No Isolation: Standard ROS - Review of Systems Constitutional: No Symptoms Reported Eyes: No Symptoms Reported ENTM: No Symptoms Reported Respiratoy: No Symptoms Reported Cardiovascular: No Symptoms Reported Gastrointestinal/Abdominal: No Symptoms Reported Genitourinary: No Symptoms Reported Neurological: No Symptoms Reported Musculoskeletal: Joint Pain, Left, Shoulder, Hip Integumentary: No Symptoms Reported Hematologic/Lymphatic: No Symptoms Reported Endocrine: No Symptoms Reported All Other Systems: Reviewed and Negative PE - Vital Signs Vitals: Temperature 96.6 F Pulse Rate 77 Respiratory Rate 20 Blood Pressure [Left Arm] 170/85 Blood Pressure 143/67 O2 Sat by Pulse Oximetry 100 - General Limitations: No Limitations General Appearance: Alert - Head Head Exam: Normal Inspection - Eyes Eye exam: Normal Appearance - ENT ENT Exam: Normal External Ear Exam - Neck Neck Exam: Normal Inspection - Chest Chest Inspection: Symmetric Chest Wall Rise - Respiratory Respiratory Exam: Normal Lung Sounds Bilat Respiratory Exam: Bilateral Clear to Auscultation - Cardiovascular Cardiovascular Exam: Regular Rate, Normal Rhythm, Normal Heart Sounds - Abdominal Exam Abdominal Exam: Normal Inspection - Extremities Extremities Exam: Tenderness (LT SHOULDER TENDER. DECREASE ROM. LT HIP TENDER. KADEN.) - Lower Extremities Neurovascular/Tendon Exam: Normal Capillary Refill Gait Exam: Observed & Limited by Pain - Back Back Exam: Normal Inspection - Neurological Neurological Exam: Alert, Oriented X3 - Psychiatric Psychiatric Exam: Normal Affect, Normal Mood - Skin Skin Exam: Erythema MDM - Differential Diagnosis Differential Diagnosis: Fracture, Sprain, Other (TENDINITIS, BURSITIS) Course - Treatment Treatment: SEE ORDERS. - Education/Counseling Education/Counseling: Patient, Family, Education Educated On: Diagnosis, Needs for Follow Up ROR - XRAY XRAY Interpreted by: Radiologist XRAY Findings: REPORT DISCUSS WITH PATIENT AND FAMILY. - Diagnosis Discharge Problem: Arthritis Shoulder pain Qualifiers: Chronicity: acute Laterality: left Qualified Code(s): M25.512 - Pain in left shoulder Hip pain Qualifiers: Laterality: left Qualified Code(s): M25.552 - Pain in left hip - Discharge Plan Condition: Stable Prescriptions: Cyclobenzaprine HCl [FLEXERIL 10 MG *] 10 mg PO TID #15 tab Ketorolac Tromethamine [Toradol Tab] 10 mg PO Q8H PRN #15 tab PRN Reason: Pain - Follow ups/Referrals Follow ups/Referrals: SHELLI CUETO [Primary Care Provider] - 3 days - Instructions Instructions: Shoulder Pain, Hip Pain, Osteoarthritis Additional Instructions: RETURN TO ED IF WORSE.
[2017-09-14] MEDS ORDERED: NORFLEX INJ IVP ONE (11:37)
[2017-09-14] MEDS ORDERED: TORADOL 60 MG VIAL IM ONE (11:37)
[2017-09-14] MEDS ORDERED: TORADOL 60 MG VIAL ONE (11:39)
[2017-09-14] MEDS ORDERED: NORFLEX INJ ONE (11:55)
--- NOTE | 2017-09-14 11:58 | RAD ---
Exam: Left shoulder three views History: 57-year-old male with left shoulder pain Comparison: None Findings: No fracture or dislocation is seen on this exam. However there is narrowing of the subacrom ial space to suggest the possibility of underlying rotator cuff degeneration. Spurring is seen along the medial aspect of the coracoid process. Mild degenerative changes are present at the left acromioc lavicular and inferior glenohumeral joints. Impression: 1. No acute bony abnormality is identified in the left shoulder. 2. Narrowing of the subacromial space suggests the possibility of underlying rotator cuff degeneratio n. Further evaluation with MRI of the left shoulder be useful Reported By:
--- NOTE | 2017-09-14 12:01 | RAD ---
History: Pain left shoulder for months. Study: Left shoulder three views. Comparison: June 15, 2016. Findings: There is no evidence of acute fracture dislocation. The acromioclavicular joint and glenohu meral joint are intact. There is arthritic change at the acromioclavicular and glenohumeral joints. T hese findings are not significantly changed since the prior study. IMPRESSION: Arthritic change at the left acromioclavicular and glenohumeral joints. No evidence of acute osseous injury to the left shoulder. Reported By:
== END 2017-09-14 13:09 | disposition home or self-care (01) ==
LOC: ER 11:14
DX: M19.90 Unspecified osteoarthritis, unspecified site (principal); M25.512 Pain in left shoulder; M25.552 Pain in left hip
CPT/HCPCS: 73030; 73501; 96372; 99282; J1885; J2360

== ENCOUNTER 2017-12-25 17:57 | Inpatient (IN) ==
[2017-12-25 19:22] LABS: BASOPHILS % (AUTO) 0.3 % (0.2-1.0); EOSINOPHILS % (AUTO) 0.7 % (0.9-2.9); LYMPHOCYTES # (AUTO) 0.9 X10^3/uL (1.3-2.9); LYMPHOCYTES % (AUTO) 14.5 % (21.0-51.0); MEAN CORPUSCULAR HEMOGLOBIN 28.9 pg (27.0-34.0); MEAN CORPUSCULAR HGB CONC 32.5 g/dL (33.0-35.0); MEAN CORPUSCULAR VOLUME 88.9 fL (80.0-100.0); MEAN PLATELET VOLUME 8.3 fL (7.4-11.0); MONOCYTES # (AUTO) 0.5 x10^3/uL (0.3-0.8); MONOCYTES % (AUTO) 8.1 % (0.0-13.0); NEUTROPHILS % (AUTO) 76.4 % (42.0-75.0); PLATELET COUNT 231 X10^3/uL (150.0-450.0); RED BLOOD COUNT 1.74 X10^6/uL (4.7-6.0); RED CELL DISTRIBUTION WIDTH 19.3 % (11.6-16.5); WHITE BLOOD COUNT 6.5 X10^3/uL (3.6-10.0)
[2017-12-25 19:27] LABS: HEMATOCRIT 15.4 % (42.0-54.0)
[2017-12-25 19:35] LABS: ALANINE AMINOTRANSFERASE 59 Units/L (12-78); ALBUMIN 2.8 g/dL (3.4-5.0); ALKALINE PHOSPHATASE 155 Units/L (46-116); ASPARTATE AMINO TRANSFERASE 70 Units/L (15-37); BLOOD UREA NITROGEN 56 mg/dL (7-18); CARBON DIOXIDE 22.4 mmol/L (21-32); CHLORIDE 102 mmol/L (98-107); CREATININE 12.06 mg/dL (0.70-1.30); SODIUM 136 mmol/L (136-145); eGFR NON BLACK RACES 5 (>60)
[2017-12-25] MEDS ORDERED: ROCEPHIN VIAL 500 MG IM ONE (19:42)
[2017-12-25] MEDS ORDERED: TYLENOL 325 MG TAB PO PRN (20:45)
[2017-12-25] MEDS ORDERED: BENADRYL INJ 50 MG VIAL IVP PRN (20:45)
[2017-12-25] MEDS ORDERED: NS 500 ML IV 500 ML IV ONE (20:45)
--- NOTE | 2017-12-25 21:02 | RAD ---
Chest, one view Indication: Extremity tremors, falls Comparison: 12/07/2017 Findings: Borderline cardiac silhouette enlargement is unchanged, accounting for differences in techn ique. The lungs are mildly hypoinflated, but grossly clear, without dense infiltrates, overt edema, o r significant pleural effusion. Impression: No acute chest process or significant change from prior. Reported By:
[2017-12-26 10:15] LABS: HEMATOCRIT 21.7 % (42.0-54.0); HEMOGLOBIN 7.3 g/dL (13.5-18.0)
--- NOTE | 2017-12-26 10:41 | DR.H&P ---
H&P - History & Physical for Day of: H&P Date: 12/25/17 - Chief Complaint Chief Complaint: WEAKNESS, UNCONTROLLED JERKING PER FAMILY - History of Present Illness History of Present Illness: [address] CUETO PCP, END STAGE RENAL DISEASE ON DIALYSIS IN [place] PRESENTED TO ED WITH SPOUSE CO INCREASED WEAKNESS AND EPISODES OF MUSCLE "JERKING". PT SKIPPED DIALYSIS TODAY DUE TO WEAKNESS. PT ALERT AND ORIENTED, HGN ON ER EVALUATION 5, PT BUN/CREAT 56/12.06. PT ADMITTED FOR TRANSFUSION PRBC. PT FAMILY REPORTS HE HAS HTN, CRF AND DM. DENIES ANY CARDIAC HISTORY, DENIES CHEST PAIN. - Past Medical History Past Medical History: Diabetes, Dyslipidemia, Gout, Hypertension, Renal Disease - Past Surgical History Surgical History: Other - Family History Family Medical History: Diabetes Mellitus, Cancer, Hypertension - Social History Does patient currently use any type of tobacco product: Yes Have you used tobacco products in the last 12 months: Yes Type of Tobacco Use: Cigarettes How many years tobacco product used: 40 Does any household member use tobacco: No Alcohol Use: None Drug Use: None - Medications Home Medications: pregabalin [From Lyrica] Allergy (Verified 09/14/17 10:54) - Review of Systems Constitutional: Weakness Eyes: No Symptoms Reported ENT: No Symptoms Reported Respiratory: SOB with Excertion Cardiovascular: Edema Gastrointestinal: No Symptoms Reported Genitourinary: No Symptoms Reported Musculoskeletal: No Symptoms Reported Skin: No Symptoms Reported Neurological: Weakness (GENERALIZED) - Physical Exam Vital Signs: Temperature 98.0 F Pulse Rate [Right] 81 Pulse Rate 84 Respiratory Rate 22 Blood Pressure [Left Arm] 144/75 Blood Pressure 117/65 O2 Sat by Pulse Oximetry 93 Oriented: Normal Eyes: Normal Ear: Right Nose: Normal Throat: Normal Respiratory: RLL Diminished, LLL Diminished Cardiovascular: Normal : Normal Auscultation: Bowel Sounds: Normal Palpation: Normal Tenderness: Normal Skin: Decreased Turgur Musculoskeletal: Right, Left, Leg, Swelling Psychiatric: Normal Mood Description: Calm Speech Pattern: Clear, Appropriate - Assessment/Plan (1) Anemia Status: Acute Plan: ADMIT ICU, S/P TRANSFUSION PRBC, OCCULT STOOL. VERIFY HOME MEDS, I & OS, SUPPLEMENTAL O2. BP CONTROL, CARDIAC MONITORING. BLOOD SUGAR CONTROL (2) End stage renal disease Status: Acute (3) Hypertension Status: Acute (4) Diabetes Status: Acute - Allergies Allergies/Adverse Reactions: Allergies Allergy/AdvReac Type Severity Reaction Status Date / Time pregabalin [From Lyrica] Allergy Verified 09/14/17 10:54
--- NOTE | 2017-12-26 10:56 | RAD ---
Examination: Portable AP chest History: SOB Comparison reference 12/25/2017 Findings: Continued borderline cardiomegaly with increasing pulmonary vascular congestion. Diffuse in filtrate now suggested in the right lower lobe. No focal consolidation, mass, pneumothorax or pleural fluid. Impression: Increasing pulmonary vascular congestion with right lower lung infiltrate consistent with pneumonia or asymmetric edema. Reported By:
[2017-12-26 11:12] LABS: ABG BASE EXCESS -3.3 mmol/L (-2.0-2.0); ABG HCO3 22.1 mmol/L (22-26)
[2017-12-26 11:13] LABS: ABG ALLEN TEST POS
[2017-12-26] MEDS ORDERED: LASIX ONE (13:51)
[2017-12-26 14:23] LABS: BILIRUBIN,URINE NEGATIVE (NEGATIVE); BLOOD/HEMOGLOBIN,URINE 3+ (NEGATIVE); GLUCOSE, URINE 2+ (NEGATIVE); KETONES,URINE NEGATIVE (NEGATIVE); LEUKOCYTE ESTERASE ,URINE 2+ (NEGATIVE); NITRITES,URINE NEGATIVE (NEGATIVE); PROTEIN,URINE 3+ (NEGATIVE); UROBILINOGEN,URINE NORMAL (NORMAL)
[2017-12-26 14:38] LABS: APPEARANCE,URINE SLIGHTLY HAZY (CLEAR); BACTERIA,URINE 1+ /HPF (NEGATIVE); COLOR,URINE YELLOW (YELLOW); SQUAMOUS EPITHELIAL CELL,UR FEW /HPF (NEGATIVE)
[2017-12-26 20:56] LABS: APPEARANCE,URINE CLEAR (CLEAR); BILIRUBIN,URINE NEGATIVE (NEGATIVE); BLOOD/HEMOGLOBIN,URINE 3+ (NEGATIVE); COLOR,URINE YELLOW (YELLOW); GLUCOSE, URINE 2+ (NEGATIVE); KETONES,URINE NEGATIVE (NEGATIVE); LEUKOCYTE ESTERASE ,URINE 1+ (NEGATIVE); NITRITES,URINE NEGATIVE (NEGATIVE); PH,URINE 6.5 (5.0 - 8.0); PROTEIN,URINE 3+ (NEGATIVE); UROBILINOGEN,URINE NORMAL (NORMAL)
[2017-12-26 21:07] LABS: BACTERIA,URINE NEGATIVE /HPF (NEGATIVE); RBC,URINE 0-2 /HPF (NONE SEEN); SQUAMOUS EPITHELIAL CELL,UR RARE /HPF (NEGATIVE)
[2017-12-27 00:44] LABS: HEMATOCRIT 23.1 % (42.0-54.0); HEMOGLOBIN 7.6 g/dL (13.5-18.0)
--- NOTE | 2017-12-27 06:41 | RAD ---
Examination: Portable AP chest History: SOB Comparison reference 12/26/2017 Findings: Persistent cardiomegaly. Increasing infiltrate now identified in both lungs. There is no e vidence for pleural fluid or pneumothorax. Impression: Cardiomegaly with interval increase/development of bilateral infiltrates, right greater t tabor left which may represent pneumonia/pulmonary edema. Reported By:
[2017-12-27 08:27] LABS: EOSINOPHILS # (AUTO) 0.1 x10^3/uL (0.0-0.2); HEMATOCRIT 21.9 % (42.0-54.0); HEMOGLOBIN 7.3 g/dL (13.5-18.0); MONOCYTES # (AUTO) 0.6 x10^3/uL (0.3-0.8); MONOCYTES % (AUTO) 6.8 % (0.0-13.0)
[2017-12-27 08:31] LABS: BASOPHILS % (AUTO) 0.2 % (0.2-1.0); EOSINOPHILS % (AUTO) 1.3 % (0.9-2.9); LYMPHOCYTES # (AUTO) 0.8 X10^3/uL (1.3-2.9); LYMPHOCYTES % (AUTO) 9.2 % (21.0-51.0); MEAN CORPUSCULAR HEMOGLOBIN 29.6 pg (27.0-34.0); MEAN CORPUSCULAR HGB CONC 33.5 g/dL (33.0-35.0); MEAN CORPUSCULAR VOLUME 88.5 fL (80.0-100.0); MEAN PLATELET VOLUME 8.7 fL (7.4-11.0); NEUTROPHILS # (AUTO) 7.2 x10^3/uL (2.2-4.8); NEUTROPHILS % (AUTO) 82.5 % (42.0-75.0); PLATELET COUNT 284 X10^3/uL (150.0-450.0); RED BLOOD COUNT 2.48 X10^6/uL (4.7-6.0); RED CELL DISTRIBUTION WIDTH 18.6 % (11.6-16.5); WHITE BLOOD COUNT 8.7 X10^3/uL (3.6-10.0)
[2017-12-27 08:37] LABS: ALBUMIN 2.4 g/dL (3.4-5.0); CALCIUM 9.2 mg/dL (8.5-10.1); CARBON DIOXIDE 18.9 mmol/L (21-32); COR CA(FOR HYPOALB) 10.5 mg/dL (8.5-10.1); CREATININE 12.92 mg/dL (0.70-1.30); TOTAL PROTEIN 7.9 g/dL (6.4-8.2)
[2017-12-27 08:53] LABS: PLATELET MORPHOLOGY COMMENT NORMAL (NORMAL)
[2017-12-27 09:10] VITALS: BMI 34.5
[2017-12-27] MEDS ORDERED: LASIX IVP ONE (14:00)
[2017-12-27 19:55] LABS: HEMATOCRIT 23.5 % (42.0-54.0); HEMOGLOBIN 7.7 g/dL (13.5-18.0)
[2017-12-28 06:14] LABS: BASOPHILS % (AUTO) 0.4 % (0.2-1.0); EOSINOPHILS # (AUTO) 0.1 x10^3/uL (0.0-0.2); EOSINOPHILS % (AUTO) 1.4 % (0.9-2.9); LYMPHOCYTES % (AUTO) 15.6 % (21.0-51.0); MEAN CORPUSCULAR HEMOGLOBIN 29.3 pg (27.0-34.0); MEAN CORPUSCULAR HGB CONC 33.2 g/dL (33.0-35.0); MEAN CORPUSCULAR VOLUME 88.1 fL (80.0-100.0); MEAN PLATELET VOLUME 8.7 fL (7.4-11.0); MONOCYTES # (AUTO) 0.6 x10^3/uL (0.3-0.8); MONOCYTES % (AUTO) 9.4 % (0.0-13.0); NEUTROPHILS # (AUTO) 4.6 x10^3/uL (2.2-4.8); NEUTROPHILS % (AUTO) 73.2 % (42.0-75.0); PLATELET COUNT 259 X10^3/uL (150.0-450.0); RED BLOOD COUNT 2.12 X10^6/uL (4.7-6.0); RED CELL DISTRIBUTION WIDTH 18.2 % (11.6-16.5); WHITE BLOOD COUNT 6.2 X10^3/uL (3.6-10.0)
[2017-12-28 06:25] LABS: HEMATOCRIT 18.7 % (42.0-54.0)
[2017-12-28 06:26] LABS: HEMOGLOBIN 6.2 g/dL (13.5-18.0)
[2017-12-28 06:36] LABS: ALANINE AMINOTRANSFERASE 29 Units/L (12-78); ALBUMIN 2.2 g/dL (3.4-5.0); ALKALINE PHOSPHATASE 100 Units/L (46-116); ASPARTATE AMINO TRANSFERASE 17 Units/L (15-37); BLOOD UREA NITROGEN 77 mg/dL (7-18); CALCIUM 8.9 mg/dL (8.5-10.1); CARBON DIOXIDE 18.7 mmol/L (21-32); CHLORIDE 103 mmol/L (98-107); COR CA(FOR HYPOALB) 10.3 mg/dL (8.5-10.1); CREATININE 13.27 mg/dL (0.70-1.30); SODIUM 135 mmol/L (136-145); TOTAL PROTEIN 7.3 g/dL (6.4-8.2); eGFR NON BLACK RACES 4 (>60)
--- NOTE | 2017-12-28 08:25 | PCM.PROG ---
Progress Note - Progress Note for Day of Date of Exam: 12/26/17 - Subjective Subjective: 57 BM ER ADMISSION ONE DAY AGO WITH INTRACTABLE MUSCLE JERKING AND GENERALIZED WEAKNESS. PT HAS HX OF END STAGE RENAL DISEASE ON DIALYSIS,WHICH HE SKIPPED ON THURSDAY. PT WAS ANEMIA ON ADMISSION ANSD S/P 2 UNITS PRBC. PT HAS INCREASED SOB THIS AM AND COUGH WITH CLEAR, FOAM SPUTUM. PT DENIES ANY CHEST PAIN, REFUSING TO BE TRANSFERRED TO [place] OR [place] FOR DIALYSIS, STATES HE WILL WAIT UNTIL THURSDAY. PT INFORMED OF RISKS AND MEDICAL NEED. PT AND SPOUSE CONTINUED TO REFUSE PLAN OF CARE. PT SIGNED LIMITED DNR. ABG THIS AM, REPEAT CXR , RESP CARE - Past Medical Family Social History Past Med/Fam/Surg Hx: No changes since H&P Allergies: Allergies pregabalin [From Lyrica] Allergy (Verified 09/14/17 10:54) - Review of Systems ROS: No change since H&P - Vital Signs and I&O's Vital Signs: Temperature 99.5 F Pulse Rate [Right] 85 Pulse Rate 84 Respiratory Rate 17 Blood Pressure [Left Arm] 149/77 Blood Pressure 117/65 O2 Sat by Pulse Oximetry 98 Intake and Output: Intake & Output 12/25/17 12/26/17 12/27/17 12/28/17 11:59 11:59 11:59 11:59 Intake Total 566 / 566 880 / 880 2049 / 2049 Output Total 400 / 400 1425 / 1425 1100 / 1100 Balance 166 / 166 -545 / -545 950 / 950 - Physical Exam Oriented: Normal Eyes: Normal Ear: Right Nose: Normal Throat: Normal Respiratory: Diminished Cardiovascular: Tachycardia, Edema : Normal Auscultation: Bowel Sounds: Normal Tenderness: Normal Skin: Decreased Turgur Musculoskeletal: Right, Left, Leg, Swelling Psychiatric: Normal Mood Description: Calm Speech Pattern: Clear, Appropriate - Laboratory and Diagnostics Result Diagrams: 12/28/17 05:26 12/28/17 05:26 Labs: 12/26/17 13:28 Urine,Clean Catch Urine Culture - Preliminary Laboratory WBC 6.2 X10^3/uL (3.6-10.0) 12/28/17 05:26 RBC 2.12 X10^6/uL (4.7-6.0) L 12/28/17 05:26 Hgb 6.2 g/dL (13.5-18.0) L* 12/28/17 05:26 Hct 18.7 % (42.0-54.0) L* 12/28/17 05:26 MCV 88.1 fL (80.0-100.0) 12/28/17 05:26 MCH 29.3 pg (27.0-34.0) 12/28/17 05:26 MCHC 33.2 g/dL (33.0-35.0) 12/28/17 05:26 RDW 18.2 % (11.6-16.5) H 12/28/17 05:26 Plt Count 259 X10^3/uL (150.0-450.0) 12/28/17 05:26 Plt Count Comment Adequate (ADEQUATE) 12/27/17 08:06 MPV 8.7 fL (7.4-11.0) 12/28/17 05:26 Neut % (Auto) 73.2 % (42.0-75.0) 12/28/17 05:26 Lymph % (Auto) 15.6 % (21.0-51.0) L 12/28/17 05:26 [place] % (Auto) 9.4 % (0.0-13.0) 12/28/17 05:26 Eos % (Auto) 1.4 % (0.9-2.9) 12/28/17 05:26 Baso % (Auto) 0.4 % (0.2-1.0) 12/28/17 05:26 Neut # (Auto) 4.6 x10^3/uL (2.2-4.8) 12/28/17 05:26 Lymph # (Auto) 1.0 X10^3/uL (1.3-2.9) L 12/28/17 05:26 [place] # (Auto) 0.6 x10^3/uL (0.3-0.8) 12/28/17 05:26 Eos # (Auto) 0.1 x10^3/uL (0.0-0.2) 12/28/17 05:26 Baso # (Auto) 0.0 X10^3/uL (0.0-0.1) 12/28/17 05:26 Absolute Nucleated RBC 0.1 /100WBC 12/28/17 05:26 Plt Morphology Comment Normal (NORMAL) 12/27/17 08:06 RBC Morphology Normal (NORMAL) 12/27/17 08:06 INR Target Range - 12/25/17 19:05 INR 1.20 (0.8-1.3) 12/25/17 19:05 Sample Site Left radial 12/26/17 11:00 ABG pH 7.350 (7.35-7.45) 12/26/17 11:00 ABG pCO2 40.0 mmHg (35.0-45.0) 12/26/17 11:00 ABG pO2 66.0 mmHg (80.0-100.0) L 12/26/17 11:00 ABG HCO3 22.1 mmol/L (22-26) 12/26/17 11:00 ABG O2 Saturation 92.0 % (90-100) 12/26/17 11:00 ABG Base Excess -3.3 mmol/L (-2.0-2.0) L 12/26/17 11:00 Swapnil Test Pos 12/26/17 11:00 A-a Gradient 84.0 mmHg 12/26/17 11:00 FiO2 28.000 12/26/17 11:00 Blood Gas Comments Artis well aw 12/26/17 11:00 Sodium 135 mmol/L (136-145) L 12/28/17 05:26 Corrected Sodium TNP 12/28/17 05:26 Potassium 5.2 mmol/L (3.5-5.1) H 12/28/17 05:26 Chloride 103 mmol/L (98-107) 12/28/17 05:26 Carbon Dioxide 18.7 mmol/L (21-32) L 12/28/17 05:26 BUN 77 mg/dL (7-18) H 12/28/17 05:26 Creatinine 13.27 mg/dL (0.70-1.30) H 12/28/17 05:26 Est GFR (MDRD) Af Amer 5 (>60) L 12/28/17 05:26 Est GFR (MDRD) Non-Af 4 (>60) L 12/28/17 05:26 Glucose 90 mg/dL (65-99) 12/28/17 05:26 POC Glucose (mg/dL) 80 mg/dL (65-99) 12/28/17 05:35 Calcium 8.9 mg/dL (8.5-10.1) 12/28/17 05:26 Corrected Calcium 10.3 mg/dL (8.5-10.1) H 12/28/17 05:26 Total Bilirubin 0.40 mg/dL (0.2-1.0) 12/28/17 05:26 AST 17 Units/L (15-37) 12/28/17 05:26 ALT 29 Units/L (12-78) 12/28/17 05:26 Alkaline Phosphatase 100 Units/L (46-116) 12/28/17 05:26 Total Protein 7.3 g/dL (6.4-8.2) 12/28/17 05:26 Albumin 2.2 g/dL (3.4-5.0) L 12/28/17 05:26 Globulin 5.1 g/dL (2.5-4.5) H 12/28/17 05:26 Albumin/Globulin Ratio 0.4 Ratio (1.1-2.1) L 12/28/17 05:26 Specimen Type Catherized urine 12/26/17 20:35 Urine Color Yellow (YELLOW) 12/26/17 20:35 Urine Appearance Clear (CLEAR) 12/26/17 20:35 Urine pH 6.5 (5.0 - 8.0) 12/26/17 20:35 Ur Specific [place] 1.010 (1.000-1.030) 12/26/17 20:35 Urine Protein 3+ (NEGATIVE) 12/26/17 20:35 Urine Glucose (UA) 2+ (NEGATIVE) 12/26/17 20:35 Urine Ketones Negative (NEGATIVE) 12/26/17 20:35 Urine Occult Blood 3+ (NEGATIVE) 12/26/17 20:35 Urine Nitrite Negative (NEGATIVE) 12/26/17 20:35 Urine Bilirubin Negative (NEGATIVE) 12/26/17 20:35 Urine Urobilinogen Normal (NORMAL) 12/26/17 20:35 Ur Leukocyte Esterase 1+ (NEGATIVE) 12/26/17 20:35 Urine RBC 0-2 /HPF (NONE SEEN) 12/26/17 20:35 Urine WBC 10-20 /HPF (NONE SEEN) 12/26/17 20:35 Ur Squamous Epith Cells Rare /HPF (NEGATIVE) 12/26/17 20:35 Urine Bacteria Negative /HPF (NEGATIVE) 12/26/17 20:35 Ur Culture Indicated? Yes/culture set up 12/26/17 20:35 Stool Description 75g,formed,soft,wilkinson 12/26/17 11:41 Stl Occult Blood (IFOB) Negative (NEGATIVE) 12/26/17 11:41 Blood Type B POSITIVE 12/25/17 20:49 Antibody Screen Negative 12/25/17 20:49 Crossmatch See Detail 12/25/17 20:49 - Plan (1) Anemia Status: Acute Plan: S/P TRANSFUSION PRBC ON ADMISSION, OCCULT STOOL. RESP CONSULT, ABG THIS AM, REFUSED [facility] FOR DIALYSIS. VERIFY HOME MEDS, I & OS, SUPPLEMENTAL O2. BP CONTROL, CARDIAC MONITORING. BLOOD SUGAR CONTROL (2) End stage renal disease Status: Acute Plan: LIMITED DNR SIGNED AFTER ASSESSMENT BY DR JAUREGUI, PT AND FAMILY REFUSED TRANSFER FOR DIALYSIS. (3) Hypertension Status: Acute (4) Diabetes Status: Acute
--- NOTE | 2017-12-28 08:35 | PCM.PROG ---
Progress Note - Progress Note for Day of Date of Exam: 12/27/17 - Subjective Subjective: 57 BM ER ADMISSION ONE DAY AGO WITH INTRACTABLE MUSCLE JERKING AND GENERALIZED WEAKNESS. PT HAS HX OF END STAGE RENAL DISEASE ON DIALYSIS,WHICH HE SKIPPED ON THURSDAY. PT WAS ANEMIA ON ADMISSION ANSD S/P 2 UNITS PRBC. HGB THIS AM 7.3, BUN 71/CREAT 12.92 WITH HYPERKALEMIA K+ 5.6. PT ENCOURAGED TO COOPERATE FOR TRANSFER FOR DIALYSIS. PT CXR WORSENED PULMONARY CONGESTION. PT DOES REPORT IMPROVED SOB THIS AM AND PT DENIES ANY CHEST PAIN, REFUSING TO BE TRANSFERRED TO [facility] FOR DIALYSIS, STATES HE WILL WAIT UNTIL THURSDAY. PT INFORMED OF RISKS AND MEDICAL NEED. PT AND SPOUSE CONTINUED TO REFUSE PLAN OF CARE. PT SIGNED LIMITED DNR. RESP THERAPY, SUPPLEMENTAL O2 STRICT I & OS. AGREEING FOR TRANSFER FOR DIALYSIS ON THURSDAY AM. - Past Medical Family Social History Past Med/Fam/Surg Hx: No changes since H&P Allergies: Allergies pregabalin [From Lyrica] Allergy (Verified 09/14/17 10:54) - Review of Systems ROS: No change since H&P - Vital Signs and I&O's Vital Signs: Temperature 99.5 F Pulse Rate [Right] 85 Pulse Rate 84 Respiratory Rate 17 Blood Pressure [Left Arm] 149/77 Blood Pressure 117/65 O2 Sat by Pulse Oximetry 98 Intake and Output: Intake & Output 12/25/17 12/26/17 12/27/17 12/28/17 11:59 11:59 11:59 11:59 Intake Total 566 / 566 880 / 880 2049 Output Total 400 / 400 1425 / 1425 1100 / 1100 Balance 166 / 166 -545 / -545 950 / 950 - Physical Exam Oriented: Normal Eyes: Normal Ear: Right Nose: Normal Throat: Normal Respiratory: Diminished Cardiovascular: Tachycardia, Edema : Normal Auscultation: Bowel Sounds: Normal Tenderness: Normal Skin: Decreased Turgur Musculoskeletal: Right, Left, Leg, Swelling Psychiatric: Normal Mood Description: Calm Speech Pattern: Clear, Appropriate - Laboratory and Diagnostics Result Diagrams: 12/28/17 05:26 12/28/17 05:26 Labs: 12/26/17 13:28 Urine,Clean Catch Urine Culture - Preliminary Laboratory WBC 6.2 X10^3/uL (3.6-10.0) 12/28/17 05:26 RBC 2.12 X10^6/uL (4.7-6.0) L 12/28/17 05:26 Hgb 6.2 g/dL (13.5-18.0) L* 12/28/17 05:26 Hct 18.7 % (42.0-54.0) L* 12/28/17 05:26 MCV 88.1 fL (80.0-100.0) 12/28/17 05:26 MCH 29.3 pg (27.0-34.0) 12/28/17 05:26 MCHC 33.2 g/dL (33.0-35.0) 12/28/17 05:26 RDW 18.2 % (11.6-16.5) H 12/28/17 05:26 Plt Count 259 X10^3/uL (150.0-450.0) 12/28/17 05:26 Plt Count Comment Adequate (ADEQUATE) 12/27/17 08:06 MPV 8.7 fL (7.4-11.0) 12/28/17 05:26 Neut % (Auto) 73.2 % (42.0-75.0) 12/28/17 05:26 Lymph % (Auto) 15.6 % (21.0-51.0) L 12/28/17 05:26 [place] % (Auto) 9.4 % (0.0-13.0) 12/28/17 05:26 Eos % (Auto) 1.4 % (0.9-2.9) 12/28/17 05:26 Baso % (Auto) 0.4 % (0.2-1.0) 12/28/17 05:26 Neut # (Auto) 4.6 x10^3/uL (2.2-4.8) 12/28/17 05:26 Lymph # (Auto) 1.0 X10^3/uL (1.3-2.9) L 12/28/17 05:26 [place] # (Auto) 0.6 x10^3/uL (0.3-0.8) 12/28/17 05:26 Eos # (Auto) 0.1 x10^3/uL (0.0-0.2) 12/28/17 05:26 Baso # (Auto) 0.0 X10^3/uL (0.0-0.1) 12/28/17 05:26 Absolute Nucleated RBC 0.1 /100WBC 12/28/17 05:26 Plt Morphology Comment Normal (NORMAL) 12/27/17 08:06 RBC Morphology Normal (NORMAL) 12/27/17 08:06 INR Target Range - 12/25/17 19:05 INR 1.20 (0.8-1.3) 12/25/17 19:05 Sample Site Left radial 12/26/17 11:00 ABG pH 7.350 (7.35-7.45) 12/26/17 11:00 ABG pCO2 40.0 mmHg (35.0-45.0) 12/26/17 11:00 ABG pO2 66.0 mmHg (80.0-100.0) L 12/26/17 11:00 ABG HCO3 22.1 mmol/L (22-26) 12/26/17 11:00 ABG O2 Saturation 92.0 % (90-100) 12/26/17 11:00 ABG Base Excess -3.3 mmol/L (-2.0-2.0) L 12/26/17 11:00 Swapnil Test Pos 12/26/17 11:00 A-a Gradient 84.0 mmHg 12/26/17 11:00 FiO2 28.000 12/26/17 11:00 Blood Gas Comments Artis well aw 12/26/17 11:00 Sodium 135 mmol/L (136-145) L 12/28/17 05:26 Corrected Sodium TNP 12/28/17 05:26 Potassium 5.2 mmol/L (3.5-5.1) H 12/28/17 05:26 Chloride 103 mmol/L (98-107) 12/28/17 05:26 Carbon Dioxide 18.7 mmol/L (21-32) L 12/28/17 05:26 BUN 77 mg/dL (7-18) H 12/28/17 05:26 Creatinine 13.27 mg/dL (0.70-1.30) H 12/28/17 05:26 Est GFR (MDRD) Af Amer 5 (>60) L 12/28/17 05:26 Est GFR (MDRD) Non-Af 4 (>60) L 12/28/17 05:26 Glucose 90 mg/dL (65-99) 12/28/17 05:26 POC Glucose (mg/dL) 80 mg/dL (65-99) 12/28/17 05:35 Calcium 8.9 mg/dL (8.5-10.1) 12/28/17 05:26 Corrected Calcium 10.3 mg/dL (8.5-10.1) H 12/28/17 05:26 Total Bilirubin 0.40 mg/dL (0.2-1.0) 12/28/17 05:26 AST 17 Units/L (15-37) 12/28/17 05:26 ALT 29 Units/L (12-78) 12/28/17 05:26 Alkaline Phosphatase 100 Units/L (46-116) 12/28/17 05:26 Total Protein 7.3 g/dL (6.4-8.2) 12/28/17 05:26 Albumin 2.2 g/dL (3.4-5.0) L 12/28/17 05:26 Globulin 5.1 g/dL (2.5-4.5) H 12/28/17 05:26 Albumin/Globulin Ratio 0.4 Ratio (1.1-2.1) L 12/28/17 05:26 Specimen Type Catherized urine 12/26/17 20:35 Urine Color Yellow (YELLOW) 12/26/17 20:35 Urine Appearance Clear (CLEAR) 12/26/17 20:35 Urine pH 6.5 (5.0 - 8.0) 12/26/17 20:35 Ur Specific [place] 1.010 (1.000-1.030) 12/26/17 20:35 Urine Protein 3+ (NEGATIVE) 12/26/17 20:35 Urine Glucose (UA) 2+ (NEGATIVE) 12/26/17 20:35 Urine Ketones Negative (NEGATIVE) 12/26/17 20:35 Urine Occult Blood 3+ (NEGATIVE) 12/26/17 20:35 Urine Nitrite Negative (NEGATIVE) 12/26/17 20:35 Urine Bilirubin Negative (NEGATIVE) 12/26/17 20:35 Urine Urobilinogen Normal (NORMAL) 12/26/17 20:35 Ur Leukocyte Esterase 1+ (NEGATIVE) 12/26/17 20:35 Urine RBC 0-2 /HPF (NONE SEEN) 12/26/17 20:35 Urine WBC 10-20 /HPF (NONE SEEN) 12/26/17 20:35 Ur Squamous Epith Cells Rare /HPF (NEGATIVE) 12/26/17 20:35 Urine Bacteria Negative /HPF (NEGATIVE) 12/26/17 20:35 Ur Culture Indicated? Yes/culture set up 12/26/17 20:35 Stool Description 75g,formed,soft,wilkinson 12/26/17 11:41 Stl Occult Blood (IFOB) Negative (NEGATIVE) 12/26/17 11:41 Blood Type B POSITIVE 12/25/17 20:49 Antibody Screen Negative 12/25/17 20:49 Crossmatch See Detail 12/25/17 20:49 - Plan (1) Anemia Status: Acute Plan: S/P TRANSFUSION PRBC ON ADMISSION, OCCULT STOOL. RESP CONSULT, PT INFORMED OF RISKS AND MEDICAL NEED. PT AND SPOUSE CONTINUED TO REFUSE PLAN OF CARE. PT SIGNED LIMITED DNR. RESP THERAPY, SUPPLEMENTAL O2 STRICT I & OS. AGREEING FOR TRANSFER FOR DIALYSIS ON THURSDAY AM. BP CONTROL, CARDIAC MONITORING. BLOOD SUGAR CONTROL (2) End stage renal disease Status: Acute Plan: LIMITED DNR SIGNED AFTER ASSESSMENT BY DR JAUREGUI, PT AND FAMILY REFUSED TRANSFER FOR DIALYSIS. (3) Hypertension Status: Acute (4) Diabetes Status: Acute
[2017-12-28] MEDS ORDERED: SEVELAMER CARBONATE PO SCH (08:45)
[2017-12-28] MEDS ORDERED: NORVASC TAB 5 MG PO SCH (09:00)
[2017-12-28] MEDS ORDERED: ACTOS PO SCH (09:00)
[2017-12-28] MEDS ORDERED: ZESTRIL TAB 10 MG PO SCH (09:00)
[2017-12-28] MEDS ORDERED: NEURONTIN TAB 600 MG PO SCH (09:00)
[2017-12-28] MEDS ORDERED: LASIX PO SCH (09:00)
[2017-12-28 11:11] VITALS: BP 135/70
[2017-12-28] MEDS ORDERED: REQUIP PO SCH (14:00)
--- NOTE | 2018-01-08 06:17 | DR.GENAD ---
HPI PCP Primary Care Physician: CUETO Complaint/Symptoms Chief Complaint Doctors Comments: Patient states that today his legs and arms started shaking and can hardly stand or walk, He reports that this usually happens when he gets dialysis. He has been getting dialysis for three years. Dialysis -W- Chief Complaint:: PT HIS ARM AND LEGS STARTED SHAKING AND HE HAS BEEN FALLING. Source History Provided: Patient Mode of Arrival Mode of Arrival: Wheelchair Timing Onset of Chief Complaint: 12/25/17 PMH PMH Past Medical History: Yes Past Medical History: Diabetes, Dyslipidemia, Gout, Hypertension and Renal Disease Past Surgical History: Yes Surgical History: Ortho Surgery Family History History of Family Medical Conditions: Yes Family Medical History: Cancer and Hypertension Social History Does patient currently use any type of tobacco product: Yes Have you used tobacco products in the last 12 months: Yes Type of Tobacco Use: Cigarettes Does any household member use tobacco: Yes Alcohol Use: None Do you use any recreational Drugs:: No Lives With: Family Lives Where: Home infectious screening In the last 2 months have you had wt loss of >10#?: NO Have you had fever, night sweats or hemotysis?: No Have you traveled outside the country in the last 6 months?: No Isolation: Standard ROS Review of Systems Constitutional: No Symptoms Reported Respiratoy: No Symptoms Reported Cardiovascular: No Symptoms Reported, See HPI, Chest Pain, Palpitations, Syncope , Skin Mottling and Other Gastrointestinal/Abdominal: negative Vomiting Neurological: No Symptoms Reported Integumentary: No Symptoms Reported PE Vital Signs Vitals: Temperature 99.6 F Pulse Rate [Right] 77 Pulse Rate 84 Respiratory Rate 16 Blood Pressure [Left Arm] 135/70 Blood Pressure 117/65 O2 Sat by Pulse Oximetry 98 General General Appearance: Alert and In No Apparent Distress Head Head Exam: Normal Inspection and Atraumatic Eyes Eye exam: Normal Appearance, PERRL and EOMI ENT ENT Exam: Normal Exam and Normal Oropharynx External Ear Exam: Normal External Inspection; negative Auricular Hematoma, Auricular Trauma and Periauricular Adenopathy TM/Canal Exam: Bilateral: Normal Nose Exam: Normal Nose Exam Mouth Exam: Normal Inspection Throat Exam: Normal Inspection Neck Neck Exam: Normal Inspection; negative Tenderness Chest Chest Inspection: Normal Inspection Respiratory Respiratory Exam: Normal Lung Sounds Bilat Respiratory Exam: Bilateral: Clear to Auscultation Cardiovascular Cardiovascular Exam: Regular Rate and Normal Rhythm Abdominal Exam Abdominal Exam: Normal Inspection and Tenderness (generalized); negative Rebound , Hyperactive Bowel Sounds, Ascites and Bruit Abdominal Tenderness: RLQ, LLQ, Epigastrium, Suprapubic and Mild Extremities Extremities Exam: Normal Inspection and Full ROM Back Back Exam: Normal Inspection; negative (R) CVA Tenderness, (L) CVA Tenderness and Vertebral Tenderness Neurologic Neurological Exam: Alert, Oriented X3 and CN II-XII Intact Psychiatric Psychiatric Exam: Normal Affect and Normal Mood; negative Agitated Skin Skin Exam: Warm, Dry, Intact and Normal Color; negative Rash COURSE Treatment Treatment: Type and Cross for 2 Units-will re-evaluate Consultation Called: 19:05 Consultation Comments: Admit for further treatment ROR Labs Reviewed Laboratory Results Reviewed?: Yes Result Diagrams: 12/28/17 05:26 12/28/17 05:26 Laboratory: 12/26/17 13:28 Urine,Clean Catch Urine Culture - Final WBC 6.2 X10^3/uL (3.6-10.0) 12/28/17 05:26 RBC 2.12 X10^6/uL (4.7-6.0) L 12/28/17 05:26 Hgb 6.2 g/dL (13.5-18.0) L* 12/28/17 05:26 Hct 18.7 % (42.0-54.0) L* 12/28/17 05:26 MCV 88.1 fL (80.0-100.0) 12/28/17 05:26 MCH 29.3 pg (27.0-34.0) 12/28/17 05:26 MCHC 33.2 g/dL (33.0-35.0) 12/28/17 05:26 RDW 18.2 % (11.6-16.5) H 12/28/17 05:26 Plt Count 259 X10^3/uL (150.0-450.0) 12/28/17 05:26 Plt Count Comment Adequate (ADEQUATE) 12/27/17 08:06 MPV 8.7 fL (7.4-11.0) 12/28/17 05:26 Neut % (Auto) 73.2 % (42.0-75.0) 12/28/17 05:26 Lymph % (Auto) 15.6 % (21.0-51.0) L 12/28/17 05:26 [place] % (Auto) 9.4 % (0.0-13.0) 12/28/17 05:26 Eos % (Auto) 1.4 % (0.9-2.9) 12/28/17 05:26 Baso % (Auto) 0.4 % (0.2-1.0) 12/28/17 05:26 Neut # (Auto) 4.6 x10^3/uL (2.2-4.8) 12/28/17 05:26 Lymph # (Auto) 1.0 X10^3/uL (1.3-2.9) L 12/28/17 05:26 [place] # (Auto) 0.6 x10^3/uL (0.3-0.8) 12/28/17 05:26 Eos # (Auto) 0.1 x10^3/uL (0.0-0.2) 12/28/17 05:26 Baso # (Auto) 0.0 X10^3/uL (0.0-0.1) 12/28/17 05:26 Absolute Nucleated RBC 0.1 /100WBC 12/28/17 05:26 Plt Morphology Comment Normal (NORMAL) 12/27/17 08:06 RBC Morphology Normal (NORMAL) 12/27/17 08:06 INR Target Range - 12/25/17 19:05 INR 1.20 (0.8-1.3) 12/25/17 19:05 Sample Site Left radial 12/26/17 11:00 ABG pH 7.350 (7.35-7.45) 12/26/17 11:00 ABG pCO2 40.0 mmHg (35.0-45.0) 12/26/17 11:00 ABG pO2 66.0 mmHg (80.0-100.0) L 12/26/17 11:00 ABG HCO3 22.1 mmol/L (22-26) 12/26/17 11:00 ABG O2 Saturation 92.0 % (90-100) 12/26/17 11:00 ABG Base Excess -3.3 mmol/L (-2.0-2.0) L 12/26/17 11:00 Swapnil Test Pos 12/26/17 11:00 A-a Gradient 84.0 mmHg 12/26/17 11:00 FiO2 28.000 12/26/17 11:00 Blood Gas Comments Artis well aw 12/26/17 11:00 Sodium 135 mmol/L (136-145) L 12/28/17 05:26 Corrected Sodium TNP 12/28/17 05:26 Potassium 5.2 mmol/L (3.5-5.1) H 12/28/17 05:26 Chloride 103 mmol/L (98-107) 12/28/17 05:26 Carbon Dioxide 18.7 mmol/L (21-32) L 12/28/17 05:26 BUN 77 mg/dL (7-18) H 12/28/17 05:26 Creatinine 13.27 mg/dL (0.70-1.30) H 12/28/17 05:26 Est GFR (MDRD) Af Amer 5 (>60) L 12/28/17 05:26 Est GFR (MDRD) Non-Af 4 (>60) L 12/28/17 05:26 Glucose 90 mg/dL (65-99) 12/28/17 05:26 POC Glucose (mg/dL) 80 mg/dL (65-99) 12/28/17 05:35 Calcium 8.9 mg/dL (8.5-10.1) 12/28/17 05:26 Corrected Calcium 10.3 mg/dL (8.5-10.1) H 12/28/17 05:26 Total Bilirubin 0.40 mg/dL (0.2-1.0) 12/28/17 05:26 AST 17 Units/L (15-37) 12/28/17 05:26 ALT 29 Units/L (12-78) 12/28/17 05:26 Alkaline Phosphatase 100 Units/L (46-116) 12/28/17 05:26 Total Protein 7.3 g/dL (6.4-8.2) 12/28/17 05:26 Albumin 2.2 g/dL (3.4-5.0) L 12/28/17 05:26 Globulin 5.1 g/dL (2.5-4.5) H 12/28/17 05:26 Albumin/Globulin Ratio 0.4 Ratio (1.1-2.1) L 12/28/17 05:26 Specimen Type Catherized urine 12/26/17 20:35 Urine Color Yellow (YELLOW) 12/26/17 20:35 Urine Appearance Clear (CLEAR) 12/26/17 20:35 Urine pH 6.5 (5.0 - 8.0) 12/26/17 20:35 Ur Specific [place] 1.010 (1.000-1.030) 12/26/17 20:35 Urine Protein 3+ (NEGATIVE) 12/26/17 20:35 Urine Glucose (UA) 2+ (NEGATIVE) 12/26/17 20:35 Urine Ketones Negative (NEGATIVE) 12/26/17 20:35 Urine Occult Blood 3+ (NEGATIVE) 12/26/17 20:35 Urine Nitrite Negative (NEGATIVE) 12/26/17 20:35 Urine Bilirubin Negative (NEGATIVE) 12/26/17 20:35 Urine Urobilinogen Normal (NORMAL) 12/26/17 20:35 Ur Leukocyte Esterase 1+ (NEGATIVE) 12/26/17 20:35 Urine RBC 0-2 /HPF (NONE SEEN) 12/26/17 20:35 Urine WBC 10-20 /HPF (NONE SEEN) 12/26/17 20:35 Ur Squamous Epith Cells Rare /HPF (NEGATIVE) 12/26/17 20:35 Urine Bacteria Negative /HPF (NEGATIVE) 12/26/17 20:35 Ur Culture Indicated? Yes/culture set up 12/26/17 20:35 Stool Description 75g,formed,soft,wilkinson 12/26/17 11:41 Stl Occult Blood (IFOB) Negative (NEGATIVE) 12/26/17 11:41 Blood Type B POSITIVE 12/25/17 20:49 Antibody Screen Negative 12/25/17 20:49 Crossmatch See Detail 12/25/17 20:49 Diagnosis Discharge Problem: Anemia Instructions Instructions: Steps to Quit Smoking, [id number] Anemia Hyperkalemia, [id number] Dehydration, Adult, Exde-nf-Caum Rehydration, Adult Dialysis Hypertension, Gszx-yr-Vzar Chronic Kidney Disease, Adult, [id number]-hb-[id number] Type 2 Diabetes Mellitus, Diagnosis, Adult, [id number] Forms: Patient Portal
== END 2017-12-28 10:50 | disposition home or self-care (01) | DRG 56 ==
LOC: ER 17:57 → ICU 20:50
PROVIDERS: ADMIT Internal Medicine; ATTEND Obstetrics & Gynecology Obstetrics
DX: R25.3 Fasciculation; Z66 Do not resuscitate; R06.02 Shortness of breath; E11.65 Type 2 diabetes mellitus with hyperglycemia; G25.81 Restless legs syndrome; D64.89 Other specified anemias; I10 Essential (primary) hypertension; E78.2 Mixed hyperlipidemia; Z99.2 Dependence on renal dialysis; R53.1 Weakness; N18.6 End stage renal disease
CPT/HCPCS: 36415; 36430; 36600; 71010; 71045; 80053; 81001; 82270; 82803; 85014; 85018; 85025; 85610; 86850; 86900; 86901; 86922; 87086; 99285; A4222; P9016; J1200; J1940; J3490; J7040